=== PATIENT | male | born 1990 | race Caucasian/White ===

== ENCOUNTER 2017-12-14 15:27 | Emergency (ER) | payer SELFPAY ==
[2017-12-14] MEDS ORDERED: ETOMIDATE 2 MG/ML 10 ML VIAL ONE (16:21)
== END 2017-12-14 17:23 | disposition home or self-care (01) ==
LOC: EDH 15:27
DX: S43.395A Dislocation of other parts of left shoulder girdle, initial encounter (principal); W18.39XA Other fall on same level, initial encounter; Y93.68 Activity, volleyball (beach) (court); Y92.89 Other specified places as the place of occurrence of the external cause; Y99.8 Other external cause status
CPT/HCPCS: 23650; 73030 ×2; 96374; 99284; J3490

== ENCOUNTER 2018-01-02 11:10 | Emergency (ER) | payer OTHER ==
[2018-01-02] MEDS ORDERED: KETOROLAC TROMETHAMINE 60 MG/2 ML VIAL ONE (12:05)
== END 2018-01-02 12:17 | disposition home or self-care (01) ==
LOC: EDH 11:10
DX: S43.085A Other dislocation of left shoulder joint, initial encounter (principal); Z87.891 Personal history of nicotine dependence; W18.39XA Other fall on same level, initial encounter; Y93.89 Activity, other specified; Y92.098 Other place in other non-institutional residence as the place of occurrence of the external cause; Y99.8 Other external cause status
CPT/HCPCS: 73030 ×2; 96372; 99284; J1885

== ENCOUNTER 2020-05-09 01:52 | Emergency (ER) | payer OTHER ==
[2020-05-09] MEDS ORDERED: ACETAMINOPHEN EXTRA STRENGTH 500 MG TABLET ONE (02:48)
[2020-05-09] MEDS ORDERED: CYCLOBENZAPRINE HCL 10 MG TABLET ONE (02:49)
[2020-05-09] MEDS ORDERED: IBUPROFEN 200 MG TAB ONE (02:49)
== END 2020-05-09 03:07 | disposition home or self-care (01) ==
LOC: EDH 01:52
DX: S39.012A Strain of muscle, fascia and tendon of lower back, initial encounter (principal); S00.83XA Contusion of other part of head, initial encounter; Z72.0 Tobacco use; Y08.89XA Assault by other specified means, initial encounter; Y93.89 Activity, other specified; Y92.89 Other specified places as the place of occurrence of the external cause; Y99.8 Other external cause status